=== PATIENT | male | born 1945 | race Caucasian/White ===

== ENCOUNTER 2018-09-11 20:18 | Emergency (ER) | payer MEDICARE, MEDICAID, OTHER ==
[~2018-09-11] VITALS: Ht 177.8 cm; Wt 65.9 kg
[2018-09-11] MEDS ORDERED: ipratropium/albuterol 3ml nebule NEB ONE (20:50)
[2018-09-11] MEDS ORDERED: predniSONE 20 mg tablet PO ONE (20:50)
--- NOTE | 2018-09-11 21:07 | NUR ---
pt has productive cough of thick yellow sputum- he is given sample cup so if an order is entered we can collect a specimen
[2018-09-11 21:22] LABS: ALANINE AMINOTRANSFERASE 28 U/L (12-78); ALBUMIN 3.5 G/DL (3.4-5.0); ALBUMIN/GLOBULIN RATIO 0.9 (1.1-1.5); ALKALINE PHOSPHATASE 104 IU/L (46-116); ANION GAP 11 (8-16); ASPARTATE AMINO TRANSFERASE 36 U/L (10-37); BASOPHILS # (AUTO) 0.1 X10'3 (0-0.2); BASOPHILS % (AUTO) 0.4 % (0-1); BILIRUBIN,TOTAL 0.9 MG/DL (0.1-1.0); BLOOD UREA NITROGEN 22 MG/DL (7-18); BUN/CREATININE RATIO 13.2 (5.4-32.0); CHLORIDE 105 MMOL/L (99-107); CREATININE 1.67 MG/DL (0.60-1.10); EOSINOPHILS # (AUTO) 0.3 X10'3 (0-0.9); EOSINOPHILS % (AUTO) 2.2 % (0-6); GLUCOSE 74 MG/DL (70-104); HEMATOCRIT 47.8 % (42.0-52.0); HEMOGLOBIN 15.7 g/dl (14.0-17.9); LYMPHOCYTES # (AUTO) 1.5 X10'3 (1.1-4.8); LYMPHOCYTES % (AUTO) 10.2 % (21-51); MEAN CORPUSCULAR HEMOGLOBIN 31.3 PG (27.0-31.0); MEAN CORPUSCULAR HGB CONC 32.8 g/dL (33.0-36.5); MEAN CORPUSCULAR VOLUME 95.2 FL (78-98); MEAN PLATELET VOLUME 9.2 FL (7.4-10.4); MONOCYTES # (AUTO) 0.8 X10'3 (0-0.9); MONOCYTES % (AUTO) 5.3 % (2-12); NEUTROPHILS # (AUTO) 11.8 X10'3 (1.8-7.7); NEUTROPHILS % (AUTO) 81.9 % (42-75); PLATELET COUNT 226 X10'3 (140-440); POTASSIUM 4.1 MMOL/L (3.5-5.1); RED BLOOD COUNT 5.02 X10'6 (4.70-6.10); RED CELL DISTRIBUTION WIDTH 13.8 % (11.5-14.5); SODIUM 143 MMOL/L (135-145); TOTAL CARBON DIOXIDE 26.9 MMOL/L (24-32); TOTAL PROTEIN 7.6 G/DL (6.4-8.2); WHITE BLOOD COUNT 14.4 X10'3 (4.5-11.0); eGFR 41 ML/MIN
[2018-09-11] MEDS ORDERED: LEVO750T21 PO (21:49)
[2018-09-11] MEDS ORDERED: PRED20TA PO (21:49)
[2018-09-11 22:04] VITALS: BP 120/95
== END 2018-09-11 22:20 | disposition home or self-care (01) ==
LOC: ER 20:19
DX: J44.1 Chronic obstructive pulmonary disease with (acute) exacerbation (principal); J96.10 Chronic respiratory failure, unspecified whether with hypoxia or hypercapnia; G89.29 Other chronic pain; Z79.899 Other long term (current) drug therapy
CPT/HCPCS: 36415; 71045; 80053; 83880; 84484; 85025; 93005; 94640; 94760; 99284; J7512